=== PATIENT | male | born 1985 | race Caucasian/White ===

== ENCOUNTER 2023-09-11 18:36 | Emergency (ER) | payer MEDICAID, SELFPAY ==
[2023-09-11 18:45] VITALS: BP 150/110; PULSE 102; O2SAT 96
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
[2023-09-11 19:07] VITALS: BP 143/83; PULSE 86; RESP 18; TEMP 36.2; O2SAT 96; BMI 27.4
[2023-09-11 19:18] VITALS: BP 143/83; PULSE 86; RESP 18; TEMP 36.2; O2SAT 96
== END 2023-09-11 19:21 | disposition home or self-care (01) ==
PROVIDERS: Emergency Provider Student in an Organized Health Care Education/Training Program; PCP Family Medicine
DX: M25.532 Pain in left wrist (principal); M25.531 Pain in right wrist
CPT/HCPCS: 99282

== ENCOUNTER 2025-01-10 09:07 | Emergency (ER) | payer OTHER, SELFPAY ==
[2025-01-10] VITALS (9 sets, daily range): BP systolic 97–140; BP diastolic 50–98; PULSE 49–96; RESP 16–20; TEMP 36.2–36.6; O2SAT 95–100; BMI 28.6
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
[2025-01-10] MEDS: Naloxone HCl Nasal TAKE HOME 4 MG SPRAY 8 MG NOSTRILALT (17:01)
== END 2025-01-10 17:14 | disposition home or self-care (01) ==
PROVIDERS: Emergency Provider Emergency Medicine
DX: F11.90 Opioid use, unspecified, uncomplicated (principal); Z59.02 Unsheltered homelessness
CPT/HCPCS: 99284